=== PATIENT | male | born 1985 | race Caucasian/White ===

== ENCOUNTER 2018-04-03 16:54 | Emergency (ER) | payer MEDICAID ==
--- NOTE | 2018-04-03 17:16 | Emergency Department Record ---
History of Present Illness - General Chief complaint: Lower Extremity Pain Stated complaint: LT HINTON INJURY Time Seen by Provider: 04/03/18 17:10 Source: Patient Mode of Arrival: Wheelchair - History of Present Illness Initial comments: Patient states he ran into a trailer hitch 3-4 days ago while jogging. He has been on the leg since then and now it is painful. swollen, and bruised over the hinton. He denies his tory of PE, DVT, chestp pain shortness of breath, or clotting abnormalities. MD Complaint: Extremity pain, Extremity swelling Onset/Timin -: Days(s) Location: Right, Lower Leg Severity scale (1-10): 9 Quality: Aching, Sharp, Other Improves with: Nothing Worsens with: Nothing - Related Data Home Medications Medication Instructions Recorded Confirmed Last Taken No Home Med [NO HOME MEDS] 04/03/18 04/03/18 Unknown Allergies Allergy/AdvReac Type Severity Reaction Status Date / Time Penicillins Allergy DIFFICULTY Verified 04/03/18 17:07 BREATHING Travel Screening - Travel/Exposure Within Last 30 Days Have you traveled within the last 30 days?: No - Travel/Exposure Within Last Year Have you traveled outside the [place] in the last year?: No - Additonal Travel Details Have you been exposed to anyone with a communicable illness?: No - Travel Symptoms Symptom Screening: None Review of Systems Reviewed: No additional complaints except as noted below Constitutional: Reports: As per HPI. Denies: Chills, Fever, Malaise, Night sweats, Weakness, Weight change Eyes: Reports: As per HPI. Denies: Eye discharge, Eye pain, Photophobia, Vision change ENT: Reports: As per HPI. Denies: Congestion, Dental pain, Ear pain, Epistaxis , Hearing loss, Throat pain Respiratory: Reports: As per HPI. Denies: Cough, Dyspnea, Hemoptysis, Stridor, Wheezes Cardiovascular: Reports: As per HPI. Denies: Arrhythmia, Chest pain, Dyspnea on exertion, Edema, Murmurs, Orthopnea, Palpitations, Paroxysmal nocturnal dyspnea, Rheumatic Fever, Syncope Endocrine: Reports: As per HPI. Denies: Fatigue, Heat or cold intolerance, Polydipsia, Polyuria Gastrointestinal: Reports: As per HPI. Denies: Abdominal pain, Constipation, Diarrhea, Hematemesis, Hematochezia, Melena, Nausea, Vomiting Genitourinary: Reports: As per HPI. Denies: Dysuria, Frequency, Hematuria, Incontinence, Retention, Testicular pain, Testicular mass, Urgency Musculoskeletal: Reports: As per HPI. Denies: Arthralgia, Back pain, Gout, Joint swelling, Myalgia, Neck pain Skin: Reports: As per HPI. Denies: Bruising, Change in color, Change in hair/ nails, Lesions, Pruritus, Rash Neurological: Reports: As per HPI. Denies: Abnormal gait, Confusion, Headache, Numbness, Paresthesias, Seizure, Tingling, Tremors, Vertigo, Weakness Psychiatric: Reports: As per HPI. Denies: Anxiety, Auditory hallucinations, Depression, Homicidal thoughts, Suicidal thoughts, Visual hallucinations Hematological/Lymphatic: Reports: As per HPI. Denies: Anemia, Blood Clots, Easy bleeding, Easy bruising, Swollen glands Past Medical History - SOCIAL HISTORY Smoking Status: Heavy tobacco smoker (>10/day) Alcohol Use: None Drug Use: None - RESPIRATORY Hx Respiratory Disorders: Yes Hx Asthma: Yes - CARDIOVASCULAR Hx Cardio Disorders: No - NEURO Hx Neuro Disorders: No - GI Hx GI Disorders: No - Hx Genitourinary Disorders: No - ENDOCRINE Hx Endocrine Disorders: No - MUSCULOSKELETAL Hx Musculoskeletal Disorders: No - PSYCH Hx Psych Problems: No - HEMATOLOGY/ONCOLOGY Hx Hematology/Oncology Disorders: No Family Medical History Any Significant Family History?: No Physical Exam - General General Appearance: Alert, Oriented x3, Cooperative, Mild distress - Head Head exam: Normal inspection - Eye Eye exam: Normal appearance, PERRL Pupils: Normal accommodation - ENT ENT exam: Normal exam, Mucous membranes moist, Normal external ear exam, Normal orophraynx, TM's normal bilaterally Ear exam: Normal external inspection. negative: External canal tenderness Nasal Exam: Normal inspection. negative: Discharge, Sinus tenderness Mouth exam: Normal external inspection, Tongue normal Teeth exam: Normal inspection. negative: Dental caries Throat exam: Normal inspection. negative: Tonsillar erythema, Tonsillar exudate - Neck Neck exam: Normal inspection, Full ROM. negative: Tenderness - Respiratory Respiratory exam: Normal lung sounds bilaterally. negative: Respiratory distress - Cardiovascular Cardiovascular Exam: Regular rate, Normal rhythm, Normal heart sounds - GI/Abdominal GI/Abdominal exam: Soft, Normal bowel sounds. negative: Tenderness - Rectal Rectal exam: Deferred - exam: Deferred - Extremities Extremities exam: Normal inspection, Full ROM, Normal capillary refill, Tenderness (bruise over mid right hinton with swelling, ecchymosis, and tenderness. No erythema, or warmth. posterior calf nontender, but ankle/foot area is swollen mildly with dependent ecchymosis noted.. CMS intact distally.) - Back Back exam: Reports: Normal inspection, Full ROM. Denies: Muscle spasm, Rash noted, Tenderness - Neurological Neurological exam: Alert, Normal gait, Oriented X3, Reflexes normal - Psychiatric Psychiatric exam: Normal affect, Normal mood - Skin Skin exam: Dry, Intact, Normal color, Warm Course Vital Signs 04/03/18 16:59 Temperature 99.1 F Pulse Rate 84 Respiratory 18 Rate Blood Pressure 111/83 Pulse Ox 98 - Reevaluation(s) Reevaluation #1: Detailed teaching given on elevation of leg above heart. Patient understands and agrees. He is to be off work 3 days. 04/03/18 18:46 Medical Decision Making - Management Options MDM Management: No Additional Work-up Planned - Data Complexity MDM Data: X-Ray Ordered and/or Reviewed (Right lower leg Negative for fracture per radiologist.) Disposition Disposition: Discharge Clinical Impression: Contusion of lower leg, right Qualifiers: Encounter type: initial encounter Qualified Code(s): S80.11XA - Contusion of right lower leg, initial encounter Hematoma of leg Qualifiers: Encounter type: initial encounter Laterality: right Qualified Code(s): S80.11XA - Contusion of right lower leg, initial encounter Disposition: Home, Self-Care Return To Work/School Note Provided: Yes Condition: (1) Good Instructions: RICE Therapy (ED) Additional Instructions: Elevate leg above heart continuously. Ice as needed. tylenol as directed for pain. Benadryl 25 mg to 50 mg for sleep. Push fluids. Off work three days (Work note given). If you become tender over your posterior calf, return for an ultrasound. Quality - Quality Measures Quality Measures: N/A - Blood Pressure Screening Does Patient Have Any of the Following: No Blood Pressure Classification: Pre-Hypertensive BP Reading Systolic Measurement: 111 Diastolic Measurement: 83 Screening for High Blood Pressure: < Normal BP, F/U Not Required > [G8783]
[2018-04-03] MEDS ORDERED: ACETAMINOPHEN 500 MG TABLET PO ONE (17:31)
[2018-04-03] MEDS ORDERED: Diph,Pert(Acell),Tet Vac 0.5 ML SYR IM ONE (17:31)
--- NOTE | 2018-04-04 10:06 | RADIOLOGY REPORT ---
DATE: 04/03/2018 at 17:51 p.m. EXAM: RIGHT LOWER LEG. HISTORY: Jj injury four days ago. TECHNIQUE: AP and lateral views of the right lower leg. COMPARISON: None. ENCOUNTER: Initial. FINDINGS: Right lower leg appears intact with no definite fracture identified. There may be some mild soft tissue swelling anteriorly. IMPRESSION: NO FRACTURE OF THE RIGHT LOWER LEG IDENTIFIED. JOB NUMBER: [id number] MTDD
== END 2018-04-03 19:02 | disposition home or self-care (01) ==
LOC: ER 16:54
DX: S80.11XA Contusion of right lower leg, initial encounter (principal); F17.210 Nicotine dependence, cigarettes, uncomplicated; Y93.02 Activity, running
CPT/HCPCS: 90715; 96372; 99283

== ENCOUNTER 2019-01-23 15:31 | Inpatient (IN) | payer MEDICAID ==
[2019-01-23] MEDS ORDERED: 0.9 % SODIUM CHLORIDE 1000ML 1,000 ML IV ONE (16:26)
[2019-01-23] MEDS ORDERED: HYDROMORPHONE HCL 2 MG/ML VIAL IVP ONE (16:26)
--- NOTE | 2019-01-23 16:27 | Emergency Department Record ---
History of Present Illness - General Chief Complaint: Abdominal Pain Stated Complaint: HERNIA Time Seen by Provider: 01/23/19 16:22 Source: Patient Mode of Arrival: Wheelchair Limitations: No limitations - History of Present Illness Initial Comments: 34 yo female presents pain over the right femoral hernia. 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 He noticed some swelling over the right femoral area last night with pain. The pain has steadily increased since then. He had a left inguinal hernia repair as a child. No fever or vomiting. MD Complaint: Abdominal pain Onset/Timin -: Hour(s) Location: RLQ Radiation: None Migration to: RLQ Severity: Severe Severity scale (1-10): 10 Quality: Fullness, Sharp Consistency: Constant Improves With: Rest Worsens With: Movement Context: Other Associated Symptoms: Denies other symptoms - Related Data Allergies Allergy/AdvReac Type Severity Reaction Status Date / Time Penicillins Allergy DIFFICULTY Verified 01/23/19 15:43 BREATHING Travel Screening - Travel/Exposure Within Last 30 Days Have you traveled within the last 30 days?: No - Travel/Exposure Within Last Year Have you traveled outside the [place] in the last year?: No - Additonal Travel Details Have you been exposed to anyone with a communicable illness?: No Review of Systems Constitutional: Denies: Chills, Fever, Malaise, Weakness Eyes: Denies: Eye discharge ENT: Denies: Congestion, Throat pain Respiratory: Denies: Cough Cardiovascular: Denies: Chest pain, Syncope Endocrine: Denies: Fatigue Gastrointestinal: Denies: Abdominal pain, Diarrhea, Nausea, Vomiting Genitourinary: Denies: Dysuria, Frequency, Hematuria Musculoskeletal: Denies: Arthralgia, Back pain, Myalgia Skin: Denies: Bruising, Change in color, Rash Neurological: Denies: Headache Psychiatric: Denies: Anxiety Hematological/Lymphatic: Denies: Easy bleeding, Easy bruising Past Medical History - SOCIAL HISTORY Smoking Status: Heavy tobacco smoker (>10/day) Alcohol Use: None Drug Use: Occasional Drug Use Detail:: Marijuana - RESPIRATORY Hx Respiratory Disorders: Yes Hx Asthma: Yes - CARDIOVASCULAR Hx Cardio Disorders: No - NEURO Hx Neuro Disorders: No - GI Hx GI Disorders: No - Hx Genitourinary Disorders: No - ENDOCRINE Hx Endocrine Disorders: No - MUSCULOSKELETAL Hx Musculoskeletal Disorders: No - PSYCH Hx Psych Problems: No - HEMATOLOGY/ONCOLOGY Hx Hematology/Oncology Disorders: No Family Medical History Any Significant Family History?: No Physical Exam - General General Appearance: Alert, Oriented x3, Cooperative, No acute distress Limitations: No limitations - Head Head exam: Atraumatic - Eye Eye exam: Normal appearance, PERRL. negative: Conjunctival injection, Scleral icterus - ENT ENT exam: Normal exam Ear exam: Normal external inspection Nasal Exam: Normal inspection Mouth exam: Normal external inspection - Neck Neck exam: Normal inspection - Respiratory Respiratory exam: Normal lung sounds bilaterally. negative: Respiratory distress - Cardiovascular Cardiovascular Exam: Regular rate, Normal rhythm, Normal heart sounds - GI/Abdominal GI/Abdominal exam: Soft, Other (ABdomen is very soft and non tender. The inguinal area is minimally tender, he has a soft bulge lateral over the femoral area that is very tender). negative: Distended, Guarding, Rebound, Rigid, Tenderness - Rectal Rectal exam: Deferred - exam: Circumcision, Normal inspection. negative: Scrotal swelling, Testicular tenderness - Extremities Extremities exam: Tenderness (see above abdominal examination). negative: Normal inspection - Back Back exam: Denies: CVA tenderness (R), CVA tenderness (L) - Neurological Neurological exam: Alert, Oriented X3 - Psychiatric Psychiatric exam: Normal affect, Normal mood - Skin Skin exam: Dry, Intact, Normal color, Warm Course Vital Signs 01/23/19 15:39 Temperature 99.1 F Pulse Rate 101 H Respiratory 20 Rate Blood Pressure 119/76 Pulse Ox 97 - Reevaluation(s) Reevaluation #1: 01/23/19 17:45 The labs were reviewed The WBC count is 16 The CMP is normal The CT scan was read as right inguinal lymph node swelling The patient had not noticed his right lower leg was warm and red He has a sizable cellulitis on the right anterior leg. Given the pain of the LN, the cellulitis, I recommend admission for IV antibiotics. 01/23/19 17:54 I recommend admission for IV antibiotics I CARMEN Mccray [employer] for admission. Medical Decision Making - Lab Data Result diagrams: 01/23/19 16:33 01/23/19 16:33 Disposition Disposition: Admit Clinical Impression: Cellulitis, Lymphadenitis Disposition: Still a Patient at [facility] Decision to Admit: Admit from ER Decision to Admit Date: 05/18/19 Decision to Admit Time: 17:47 Condition: (2) Stable Forms: Patient Portal Access Time of Disposition: 17:47 Quality - Quality Measures Quality Measures: N/A - Blood Pressure Screening Does Patient Have Any of the Following: No Blood Pressure Classification: Normal BP Reading Systolic Measurement: 119 Diastolic Measurement: 76 Screening for High Blood Pressure: < Normal BP, F/U Not Required > [G8783]
[2019-01-23 16:59] LABS: BASO % 0.4 % (0-6); HEMATOCRIT 39.8 % (42.0-52.0); HEMOGLOBIN 13.2 gm/dl (14.0-18.0); LYMPH % 7.1 % (16-45); MEAN CORPUSCULAR HEMOGLOBIN 29.5 pg (27-33); MEAN CORPUSCULAR HGB CONC 33.2 g/dl (32-36); MONO % 3.1 % (0-9); PLATELET COUNT 223 K/uL (130-400); RED BLOOD COUNT 4.47 M/uL (4.40-5.70); RED CELL DISTRIBUTION WIDTH 13.1 % (11.5-14.5); WHITE BLOOD COUNT W/O DIFF 16.1 K/uL (4.2-12.2)
[2019-01-23 17:11] LABS: BLOOD UREA NITROGEN 10 mg/dL (6-20); CREATININE 0.8 mg/dL (0.7-1.2); EST GLOMERULAR FILTRATION RATE > 60 mL/min
[2019-01-23 17:12] LABS: INR 1.2; PARTIAL THROMBOPLASTIN TIME 34.6 SECONDS (24.5-39.1); PROTHROMBIN TIME (PATIENT) 11.6 SECONDS (9.5-12.1)
[2019-01-23 17:14] LABS: GLUCOSE,RANDOM 102 mg/dL (74-109)
[2019-01-23 17:27] LABS: ABSOLUTE NEUTROPHIL COUNT 14.04; PLATELET ESTIMATE NORMAL (NORMAL); TOXIC GRANULATION 1+
[2019-01-23] MEDS ORDERED: CLINDAMYCIN 600MG/50ML PREMIX 600 MG/50 ML BAG IVPB ONE (17:45)
[2019-01-23] MEDS ORDERED: KETOROLAC 30 MG/ML VIAL IVP ONE (17:56)
[2019-01-23] MEDS: CLINDAMYCIN 600MG/50ML PREMIX 600 MG/50 ML BAG IVPB SCH (19:28)
[2019-01-23] MEDS: 0.9 % SODIUM CHLORIDE 1000ML 1,000 ML IV PRN (20:00)
[2019-01-23] MEDS: ACETAMINOPHEN 500 MG TABLET PO PRN (20:18)
[2019-01-23] MEDS: MORPHINE SULFATE 10 MG/ML VIAL IVP SCH ×2 (20:52→23:05)
[2019-01-23] MEDS: NICOTINE 21 MG/24 HOUR PATCH TD SCH (21:01)
[2019-01-24] MEDS: ACETAMINOPHEN 500 MG TABLET PO PRN (02:24)
[2019-01-24] MEDS: CLINDAMYCIN 600MG/50ML PREMIX 600 MG/50 ML BAG IVPB SCH ×3 (02:24→18:29)
[2019-01-24] MEDS: MORPHINE SULFATE 10 MG/ML VIAL IVP SCH ×4 (02:39→15:24)
[2019-01-24 05:52] LABS: BASO % 0.4 % (0-6); GRAN % 79.2 % (47-80); HEMATOCRIT 39.6 % (42.0-52.0); HEMOGLOBIN 12.8 gm/dl (14.0-18.0); LYMPH % 11.4 % (16-45); MEAN CORPUSCULAR HGB CONC 32.3 g/dl (32-36); MEAN PLATELET VOLUME 9.7 fl (7.4-10.4); PLATELET COUNT 191 K/uL (130-400); RED CELL DISTRIBUTION WIDTH 13.3 % (11.5-14.5); WHITE BLOOD COUNT W/O DIFF 9.9 K/uL (4.2-12.2)
[2019-01-24 06:03] LABS: BLOOD UREA NITROGEN 12 mg/dL (6-20); CREATININE 0.8 mg/dL (0.7-1.2); EST GLOMERULAR FILTRATION RATE > 60 mL/min; GLUCOSE,RANDOM 94 mg/dL (74-109)
[2019-01-24] MEDS: KETOROLAC 30 MG/ML VIAL IVP PRN ×3 (06:16→23:10)
[2019-01-24] MEDS: 0.9 % SODIUM CHLORIDE 1000ML 1,000 ML IV PRN (07:16)
[2019-01-24] MEDS: NICOTINE 21 MG/24 HOUR PATCH TD SCH (10:15)
--- NOTE | 2019-01-24 15:18 | History & Physical ---
History of Present Illness - Date of Service Date of Service for History & Physical: 01/24/19 - History of Present Illness Admitting Diagnosis: cellulitis with lymphadenopathy History of Present Illness: Rodriguez Dodge is a 34 y.o. M who presented to the [facility] ED on 01/23/19 with c/o pain in the R femoral area. 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 Pain had worsened steadily, which jonathan him to the ED. Was found in the ED to have cellulitis to the RLE, for which he hadn't noticed previously. Denied fever or chills. PMHx includes: Asthma (only has rescue inhaler), tobacco use and occasional marijuana use, hx of alcohol abuse ED Course Vitals: T 99.1, HR 101, BP 119/76, RR 20, SpO2 97% on RA Labs: WBC 16.1, Neutrophils 87%, BUN 10, Creatinine 0.8 CT Abd/Pelvis: right inguinal lymph node swelling 01/24/19 1530 Vitals: T 98.8, HR 68, BP 124/68, RR 16, SpO2 96% on RA A&Ox3, laying in bed. States that pain has increased and is worse. Morphine q. 4 hours doesn't "seem to be lasting". Pain /. Has had [employer] in the past d/t a knee surgery and reports that he tolerated it well. Denies fever or chills. Reports that he does not have a PCP and is in need of one. Dr. Jensen, ED Physician, checked on pt this afternoon and reported that cellulitis in RLE was reduced but that right inguinal swelling and redness was worsening. Travel Screening - Travel/Exposure Within Last 30 Days Have you traveled within the last 30 days?: No - Travel/Exposure Within Last Year Have you traveled outside the [place] in the last year?: No - Additonal Travel Details Have you been exposed to anyone with a communicable illness?: No - Travel Symptoms Symptom Screening: None Review of Systems Reviewed: No additional complaints except as noted below Constitutional: Denies: Chills, Fever, Malaise, Weakness Eyes: Denies: Eye discharge ENT: Denies: Congestion, Throat pain Respiratory: Denies: Cough Cardiovascular: Denies: Chest pain, Syncope Endocrine: Denies: Fatigue Gastrointestinal: Denies: Abdominal pain, Diarrhea, Nausea, Vomiting Genitourinary: Denies: Dysuria, Frequency, Hematuria Musculoskeletal: Denies: Arthralgia, Back pain, Myalgia Skin: Denies: Bruising, Change in color, Rash Neurological: Denies: Headache Psychiatric: Denies: Anxiety Hematological/Lymphatic: Denies: Easy bleeding, Easy bruising Past Medical History - SOCIAL HISTORY Smoking Status: Heavy tobacco smoker (>10/day) Alcohol Use: None Drug Use: Rare Drug Use Detail:: Marijuana - RESPIRATORY Hx Respiratory Disorders: Yes Hx Asthma: Yes - CARDIOVASCULAR Hx Cardio Disorders: No - NEURO Hx Neuro Disorders: No - GI Hx GI Disorders: No - Hx Genitourinary Disorders: No - ENDOCRINE Hx Endocrine Disorders: No - MUSCULOSKELETAL Hx Musculoskeletal Disorders: No - PSYCH Hx Psych Problems: No - HEMATOLOGY/ONCOLOGY Hx Hematology/Oncology Disorders: No Family Medical History Any Significant Family History?: Yes Family Hx Comment (NOT TO BE USED IN PLACE OF ITEMS BELOW): dad has had skin infections in the past Hx Diabetes: Mother, Grandparents H&P Meds/Allergies - Allergies Allergies: Allergies Allergy/AdvReac Type Severity Reaction Status Date / Time Penicillins Allergy DIFFICULTY Verified 01/23/19 15:43 BREATHING - Active Medications Active Medications: Current Medications Acetaminophen (Tylenol 500mg Tab) 1,000 mg PO Q6H PRN PRN Reason: PAIN - MILD(1-4)/FEVER Last Admin: 01/24/19 02:24 Dose: 1,000 mg Documented by: Sodium Chloride () 1,000 mls @ 100 mls/hr IV .Q10H PRN PRN Reason: LARGE VOLUME IV Last Admin: 01/24/19 07:16 Dose: 100 mls/hr Documented by: Clindamycin Phosphate (Cleocin 600 [id number]) 600 mg in 50 mls @ 100 mls/hr IVPB Q8H SHAILA Last Infusion: 01/24/19 10:45 Dose: Infused Documented by: Ketorolac Tromethamine (Toradol) 15 mg IVP Q8H PRN PRN Reason: PAIN - MILD (1-4) Last Admin: 01/24/19 14:26 Dose: 15 mg Documented by: Morphine Sulfate (Morphine Sulfate) 4 mg IVP Q4H SHAILA Last Admin: 01/24/19 11:48 Dose: 4 mg Documented by: Nicotine (Nicotine 21mg) 1 patch TD DAILY SHAILA Last Admin: 01/24/19 10:15 Dose: 1 patch Documented by: Physical Exam - Vital Signs Vital Signs: Vital Signs - Last 24 Hrs Temp Pulse Pulse Resp BP BP Pulse Ox 01/24/19 13:00 98.8 F 68 16 124/68 96 01/24/19 07:41 16 01/24/19 05:00 98.3 F 82 20 111/69 98 01/23/19 19:06 98.7 F 94 H 16 109/76 96 01/23/19 18:38 99.1 F 87 18 104/66 100 01/23/19 15:39 99.1 F 101 H 20 119/76 97 - General General Appearance: Alert, Oriented x3, Cooperative, Mild distress (facial grimacing with slight tremors) Limitations: No limitations - Head Head exam: Atraumatic - Eye Eye exam: Normal appearance, PERRL. negative: Conjunctival injection, Scleral icterus - ENT ENT exam: Normal exam Ear exam: Normal external inspection Nasal Exam: Normal inspection Mouth exam: Normal external inspection - Neck Neck exam: Normal inspection - Respiratory Respiratory exam: Normal lung sounds bilaterally. negative: Respiratory dis tress - Cardiovascular Cardiovascular Exam: Regular rate, Normal rhythm, Normal heart sounds - GI/Abdominal GI/Abdominal exam: Soft, Other (ABdomen is very soft and non tender. The inguinal area is extremelty tender, he has a soft bulge lateral over the femoral area that is very tender and erythematous). negative: Distended, Guarding, Rebound, Rigid, Tenderness - Rectal Rectal exam: Deferred - exam: Circumcision, Normal inspection. negative: Scrotal swelling, Testicular tenderness - Extremities Extremities exam: Normal capillary refill (pulses palpable), Tenderness (RLE ), Other (Erythema and swelling well receded from drawn margins). negative: Normal inspection - Back Back exam: Denies: CVA tenderness (R), CVA tenderness (L) - Neurological Neurological exam: Alert, Oriented X3 - Psychiatric Psychiatric exam: Normal affect, Normal mood - Skin Skin exam: Dry, Erythema (RLE and right groin), Intact, Normal color, Warm Results - Labs Result Diagrams: 01/24/19 05:40 01/24/19 05:40 Labs Last 24 Hours: Laboratory Results - last 24 hr 01/23/19 01/23/19 01/23/19 16:33 16:33 16:33 WBC 16.1 H RBC 4.47 Hgb 13.2 L Hct 39.8 L MCV 89.0 MCH 29.5 MCHC 33.2 RDW 13.1 Plt Count 223 MPV 10.0 Gran % Neutrophils % 87.0 H Band Neutrophils % 5.0 Lymphocytes % 7.1 L Monocytes % 3.1 Eosinophils % 0.0 Basophils % 0.4 Absolute Neutrophils 14.04 Lymphocytes 5.0 L Monocytes 3.0 Toxic Granulation 1+ Platelet Estimate Normal RBC Morphology Normal PT 11.6 INR 1.2 APTT 34.6 Sodium 135 L Potassium 3.9 Chloride 101 Carbon Dioxide 25.0 Anion Gap 9.0 BUN 10 Creatinine 0.8 Estimated GFR > 60 Random Glucose 102 Calcium 8.9 01/24/19 01/24/19 05:40 05:40 WBC 9.9 RBC 4.40 Hgb 12.8 L Hct 39.6 L MCV 90.0 MCH 29.0 MCHC 32.3 RDW 13.3 Plt Count 191 MPV 9.7 Gran % 79.2 Neutrophils % Band Neutrophils % Lymphocytes % 11.4 L Monocytes % 7.0 Eosinophils % 2.0 Basophils % 0.4 Absolute Neutrophils 7.80 Lymphocytes Monocytes Toxic Granulation Platelet Estimate RBC Morphology PT INR APTT Sodium 138 Potassium 4.1 Chloride 102 Carbon Dioxide 27.0 Anion Gap 9.0 BUN 12 Creatinine 0.8 Estimated GFR > 60 Random Glucose 94 Calcium 8.4 L VTE H&P Assessment - Risk for VTE Risk for VTE: Yes Risk Level: Low Risk Assessment Date: 01/24/19 Risk Assessment Time: 15:30 VTE Orders Placed or Will Be Placed: Yes Plan - Inpatient Certification Inpatient Certification: Admit to inpatient care: Based on my medical assessment, after consideration of patient's risk factors (age, co-morbidities and patient presenting symptoms and acuity), I expect that this patient will remain in the hospital greater than or equal to two midnights and that the services needed warrant inpatient care because: Patient Risk Factors: [] Estimated length of stay: [] The patient may reasonably be expected to be disc harged or transferred to a hospital within 96 hours after [facility] to [facility]. Services needed: [] Post hospital care (if known): [] I certify that my determination is in accordance with my understanding of Medicare requirements for reasonable and necessary inpatient services. - Detailed Diagnosis and Plan (1) Cellulitis Current Visit: Yes Status: Acute Base Code: L03.90 - CELLULITIS, UNSPECIFIED Comment: 01/24/19 -Erythema to RLE, receded from drawn margin -Continue Clindamycin 600mg IV q. 8 hours (2) Lymphadenitis Current Visit: Yes Status: Acute Base Code: I88.9 - NONSPECIFIC LYMPHADENITIS, UNSPECIFIED Comment: 01/24/19 -Abd/Pelvis CT: Right inquinal lymph node swelling -Likely d/t RLE cellulitis -Continue Clindamycin 600mg IV q. 8 hours -Pain Management with alternating Toradol and [employer] with Morphine for breakthrough pain (3) Acute pain Current Visit: Yes Status: Acute Base Code: R52 - PAIN, UNSPECIFIED Comment: 01/24/19 -Pain poorly controlled with Morphine q. 4 hours and Toradol q. 8 hours PRN -[employer] 7.5/325mg PO q. 4 hours -Change Morphine to 1mg q. 2 hours PRN for breakthrough pain -Continue Toradol 15mg IV. q 8 hours (4) Full code status Current Visit: Yes Status: Acute Base Code: Z78.9 - OTHER SPECIFIED HEALTH STATUS Comment: 01/24/19 -Full code this admission (5) DVT prophylaxis Current Visit: Yes Status: Acute Base Code: Z29.9 - ENCOUNTER FOR [place] OPHYLACTIC MEASURES, UNSPECIFIED Comment: 01/24/19 -Low risk d/t age however has been laying in bed d/t pain -Lovenox 40mg subq q.day -Nursing to encourage ambulation
[2019-01-24] MEDS ORDERED: MORPHINE SULFATE 10 MG/ML VIAL IVP PRN (16:30)
[2019-01-24] MEDS: HYDROCODONE/APAP 7.5/325MG TABLET PO PRN (20:16)
[2019-01-24] MEDS: ENOXAPARIN 40 MG/0.4 ML SYR SQ SCH (20:56)
[2019-01-25] MEDS: HYDROCODONE/APAP 7.5/325MG TABLET PO PRN ×2 (00:28→08:27)
[2019-01-25] MEDS: CLINDAMYCIN 600MG/50ML PREMIX 600 MG/50 ML BAG IVPB SCH ×2 (02:47→11:09)
--- NOTE | 2019-01-25 07:20 | CT SCAN REPORT ---
EXAM: CT OF THE ABDOMEN AND PELVIS WITH CONTRAST HISTORY: ABDOMINAL PAIN FOR ONE DAY. TECHNIQUE: CT imaging of the abdomen and pelvis was performed following intravenous administration of contrast, amount and type of contrast is noted in the medical record. FINDINGS: The visualized lung bases are unremarkable. The liver, gallbladder, pancreas, spleen, adrenals and kidneys are unremarkable. There is a moderate volume of stool within the colon. The bowel is normal in caliber. The appendix has a normal CT appearance. The bladder is unremarkable. The aorta enhances normally with contrast. There are a few mildly prominent right inguinal lymph nodes measuring up to 14 mm in short axis. There is mild adjacent fat stranding. No free air or free fluid is seen. No acute osseous abnormality. Moderate L5-S1 degenerative disk disease. IMPRESSION: 1. NO ACUTE INTRAABDOMINAL OR PELVIC ABNORMALITY. 2. RIGHT INGUINAL LYMPH NODE ENLARGEMENT MEASURING UP TO 14 MM IN SHORT AXIS. THERE IS ADJACENT FAT STRANDING. FINDINGS MAY BE INFLAMMATORY/REACTIVE IN NATURE. CORRELATE CLINICALLY. FOLLOW-UP IMAGING WITH TARGETED ULTRASOUND COULD BE PERFORMED TO DOCUMENT RESOLUTION. JOB NUMBER: [id number] [facility]
[2019-01-25] MEDS: NICOTINE 21 MG/24 HOUR PATCH TD SCH (09:44)
[2019-01-25] MEDS: ENOXAPARIN 40 MG/0.4 ML SYR SQ SCH (10:04)
--- NOTE | 2019-01-25 13:26 | Discharge Summary ---
Providers Discharge Summary Date: 01/25/19 Date of admission: 01/23/19 19:02 Attending physician: BERNA FOX Physical Exam - Vital Signs Vital Signs: Vital Signs - Last 24 Hrs Temp Pulse Pulse Resp BP Pulse Ox 01/25/19 08:45 68 16 01/25/19 07:52 97.5 F L 83 15 120/69 97 01/25/19 05:00 98.2 F 71 20 104/64 94 L 01/24/19 21:00 98.3 F 79 18 107/70 96 - General General Appearance: Alert, Oriented x3, Cooperative, No acute distress Limitations: No limitations - Head Head exam: Atraumatic - Eye Eye exam: Normal appearance, PERRL. negative: Conjunctival injection, Scleral icterus - ENT ENT exam: Normal exam Ear exam: Normal external inspection Nasal Exam: Normal inspection Mouth exam: Normal external inspection - Neck Neck exam: Normal inspection - Respiratory Respiratory exam: Normal lung sounds bilaterally. negative: Respiratory di stress - Cardiovascular Cardiovascular Exam: Regular rate, Normal rhythm, Normal heart sounds - GI/Abdominal GI/Abdominal exam: Soft, Other (decreased erythema and bulging area to right groin/thigh. tender to touch). negative: Distended, Guarding, Rebound, Rigid, Tenderness - Rectal Rectal exam: Deferred - exam: Circumcision, Normal inspection. negative: Scrotal swelling, Testicular tenderness - Extremities Extremities exam: Normal capillary refill (pulses palpable), Tenderness, Other (Erythema and swelling well receded from drawn margins). negative: Normal inspection - Back Back exam: Denies: CVA tenderness (R), CVA tenderness (L) - Neurological Neurological exam: Alert, Oriented X3 - Psychiatric Psychiatric exam: Normal affect, Normal mood - Skin Skin exam: Dry, Erythema (well receded from previous drawn line), Intact, Normal color, Warm Hospitalization - Hospitalization Admission Diagnosis: cellulitis with lymphadenopathy - Problem List/Discharge Diagnosis (1) Cellulitis Status: Acute Base Code: L03.90 - CELLULITIS, UNSPECIFIED Comment: 01/25/19 -Erythema to RLE, receded from drawn margin, improvement from yesterday -Clindamycin 300mg PO BID x 8 days -Align 4mg po daily to prevent c.diff infection -F/u with PCP in 1 week (2) Lymphadenitis Status: Acute Base Code: I88.9 - NONSPECIFIC LYMPHADENITIS, UNSPECIFIED Comment: 01/25/19 -Abd/Pelvis CT: Right inquinal lymph node swelling -Likely d/t RLE cellulitis -Discharged with #12 Ridgely for pain control (3) Acute pain Status: Acute Base Code: R52 - PAIN, UNSPECIFIED Comment: 01/25/19 -#12 Ridgely prescribed for pain control at home (4) Full code status Status: Acute Base Code: Z78.9 - OTHER SPECIFIED HEALTH STATUS Comment: 01/25/19 -Full code this admission (5) DVT prophylaxis Status: Acute Base Code: Z29.9 - ENCOUNTER FOR PROPHYLACTIC MEASURES, UNSPECIFIED Comment: 01/25/19 -Low risk d/t age however has been laying in bed d/t pain -Nursing to encourage ambulation - Hospitalization Course Disposition: Home, Self-Care Hospital Course: Rodriguez Dodge is a 34 y.o. M who presented to the [facility] ED on 01/23/19 with c/o pain in the R femoral area. 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 Pain had worsened steadily, which jonathan him to the ED. Was found in the ED to have cellulitis to the RLE, for which he hadn't noticed previously. Denied fever or chills. PMHx includes: Asthma (only has rescue inhaler), tobacco use and occasional marijuana use, hx of alcohol abuse ED Course Vitals: T 99.1, HR 101, BP 119/76, RR 20, SpO2 97% on RA Labs: WBC 16.1, Neutrophils 87%, BUN 10, Creatinine 0.8 CT Abd/Pelvis: right inguinal lymph node swelling 01/24/19 1530 Vitals: T 98.8, HR 68, BP 124/68, RR 16, SpO2 96% on RA A&Ox3, laying in bed. States that pain has increased and is worse. Morphine q. 4 hours doesn't "seem to be lasting". Pain 06/17. Has had Ridgely in the past d/t a knee surgery and reports that he tolerated it well. Denies fever or chills. Reports that he does not have a PCP and is in need of one. Dr. Jensen, ED Physician, checked on pt this afternoon and reported that cellulitis in RLE was reduced but that right inguinal swelling and redness was worsening. 01/25/19 1300 Reports improvement in pain and swelling in groin area. Ridgely helped with pain control. Denies having any fever or chills. Has new patient appointment set up with [facility] family practice for f/u. Procedures: Imaging and X-Rays 01/23/19 16:26 ABDOMEN/PELVIS W CONTRAST [CT] Stat Abnormal Labs: Abnormal Lab Results 01/23/19 01/23/19 01/24/19 Range/Units 16:33 16:33 05:40 WBC 16.1 H (4.2-12.2) K/uL Hgb 13.2 L 12.8 L (14.0-18.0) gm/dl Hct 39.8 L 39.6 L (42.0-52.0) % Neutrophils % 87.0 H (47-80) % Lymphocytes % 7.1 L 11.4 L (16-45) % Lymphocytes 5.0 L (16-45) % Sodium 135 L (136-145) mmol/L Calcium (8.6-10.0) mg/dL 01/24/19 Range/Units 05:40 WBC (4.2-12.2) K/uL Hgb (14.0-18.0) gm/dl Hct (42.0-52.0) % Neutrophils % (47-80) % Lymphocytes % (16-45) % Lymphocytes (16-45) % Sodium (136-145) mmol/L Calcium 8.4 L (8.6-10.0) mg/dL Condition at Discharge: (2) Stable Discharge Medications - Discharge Medications Prescriptions: Bifidobacterium Infantis [Align] 4 mg PO DAILY #14 capsule Clindamycin HCl 300 mg PO BID 8 Days #16 capsule Hydrocodone/APAP 7.5/325Mg [Ridgely 7.5MG/325Mg] 1 each PO Q4H PRN #12 tab PRN Reason: Pain - Severe (8-10) Home Medications: Ambulatory Orders Bifidobacterium Infantis [Align] 4 mg PO DAILY #14 capsule 01/25/19 [Last Taken Unknown] Clindamycin HCl 300 mg PO BID 8 Days #16 capsule 01/25/19 [Last Taken Unknown] Hydrocodone/APAP 7.5/325Mg [Ridgely 7.5MG/325Mg] 1 each PO Q4H PRN #12 tab 05/20/19 [Last Taken Unknown] Discharge Plan - Discharge Instructions Activity at Discharge: Increase Activity as Tolerated Diet at Discharge: Regular Diet Instructions: Cellulitis (DC) Additional Instructions: Appointment for hospital follow up and to establish primary care with Rei Mccray at [facility] Family [facility] on 02/02 at 2:40. Please bring new patient paperwork to first appointment. Diet as tolerated. Keep leg elevated as much as possible. Take Clindamycin twice a day ( start tonight) until gone. Ridgely every 4 hours as needed for pain Align as directed. Return to the ED if getting worse. Quality Measures - Quality Measures Quality Measures: Documentation of Current Medications in Medical Record, Screening for High Blood Pressure and F/U Documented - Current Medications Quality Measure: Measure #130: Documentation of Current Medications Documentation of Current Medications: <Current Medications Documented/Reviewed> [G8427] - Blood Pressure Screening Quality Measure: Screening for High Blood Pressure and Follow-Up Documented Does Patient Have Any of the Following: No Blood Pressure Classification: Normal BP Reading Systolic Measurement: 119 Diastolic Measurement: 76 Screening for High Blood Pressure: < Normal BP, F/U Not Required > [G8783] - Elder Abuse Suspicion Index EASI Reference Information: Shadia PHILLIPS, Dm C, Navi D, Delicia M.Development and validation of a tool to assist physicians identification of elder abuse: The Elder Abuse Suspicion Index (EASI ). Journal of Elder Abuse and Neglect, 2008; 20 (3): 276-300.
== END 2019-01-25 13:46 | disposition home or self-care (01) | DRG 815 ==
LOC: ER 15:31 → MEDSURG 19:02
PROVIDERS: ADMIT Internal Medicine; ATTEND Internal Medicine
DX: I88.9 Nonspecific lymphadenitis, unspecified (principal); L03.90 Cellulitis, unspecified; R52 Pain, unspecified; J45.909 Unspecified asthma, uncomplicated; Z29.9 Encounter for prophylactic measures, unspecified
CPT/HCPCS: 74177; 80048; 85025; 85027; 85610; 85730; 96365; 96375; 99223; 99239; 99285; J1885; J2270; J7030

== ENCOUNTER 2019-04-15 10:40 | Emergency (ER) | payer MEDICAID ==
[2019-04-15] MEDS ORDERED: IBUPROFEN 600 MG TABLET PO ONE (10:46)
--- NOTE | 2019-04-15 10:52 | Emergency Department Record ---
History of Present Illness - General Chief Complaint: Ankle/Foot Injury Stated Complaint: FOOT INJURY Time Seen by Provider: 04/15/19 10:43 Source: Patient Mode of Arrival: Ambulatory Limitations: No limitations - History of Present Illness Initial Comments: The patient is here due to L foot pain. The patient states he has a hx of a L foot fracture 8 years ago and was walking at work and felt pain to the foot in the same area. He denies any injury, fall or trauma. Since the foot has been painful with walking. There is no ankle or knee pain. MD Complaint: Foot injury Onset/Timin -: Days(s) - Related Data Previous Rx's Medication Instructions Recorded Indomethacin [Indocin] 50 mg PO TID #21 cap 04/15/19 Prednisone [Prednisone 20Mg] 40 mg PO DAILY #10 tab 04/15/19 Allergies Allergy/AdvReac Type Severity Reaction Status Date / Time Penicillins Allergy DIFFICULTY Verified 04/15/19 10:52 BREATHING Review of Systems Constitutional: Denies: Chills, Fever Past Medical History - SOCIAL HISTORY Smoking Status: Heavy tobacco smoker (>10/day) Drug Use: Rare Drug Use Detail:: Marijuana - RESPIRATORY Hx Respiratory Disorders: Yes Hx Asthma: Yes - CARDIOVASCULAR Hx Cardio Disorders: No - NEURO Hx Neuro Disorders: No - GI Hx GI Disorders: No - Hx Genitourinary Disorders: No - ENDOCRINE Hx Endocrine Disorders: No - MUSCULOSKELETAL Hx Musculoskeletal Disorders: No - PSYCH Hx Psych Problems: No - HEMATOLOGY/ONCOLOGY Hx Hematology/Oncology Disorders: No Family Medical History Family Hx Comment (NOT TO BE USED IN PLACE OF ITEMS BELOW): dad has had skin infections in the past Hx Diabetes: Mother, Grandparents Physical Exam - General General Appearance: Alert, Oriented x3, Cooperative, No acute distress - Head Head exam: Atraumatic, Normocephalic - Extremities Extremities exam: Normal inspection (There is no L foot swelling, bruising, or erythema.), Normal capillary refill, Tenderness (There is tenderness to the L 1st MTP joint which does reproduce the patient's pain. There is no L ankle swelling or tenderness.), Other (The L foot is NVI.). negative: Full ROM Image of Feet: 1 - Area of pain and tenderness. Course - Reevaluation(s) Reevaluation #1: I did discuss the xray and lab work with the patient. I do believe he has gout in the L foot and he is to take the prescribed medicines as directed. The patient is to take 2 days off work and see his PCP next week for recheck. 04/15/19 12:07 Medical Decision Making - Data Complexity MDM Data: Labs Ordered and/or Reviewed, X-Ray Ordered and/or Reviewed - Lab Data Result diagrams: 04/15/19 11:26 04/15/19 11:26 - Radiology Data Radiology results: Report reviewed (L foot: Neg) Disposition Disposition: Discharge Clinical Impression: Gout attack Qualifiers: Gout site: unspecified site Gout etiology: unspecified cause Qualified Code(s): M10.9 - Gout, unspecified Disposition: Home, Self-Care Condition: (2) Stable Instructions: Gout (ED) Additional Instructions: Please take the Prednisone for 5 days along with Indocin for pain. Please follow the gout diet and see your family doctor next week for recheck. Return to the ER for any worsening issues. Prescriptions: Indomethacin [Indocin] 50 mg PO TID #21 cap Prednisone [Prednisone 20Mg] 40 mg PO DAILY #10 tab Forms: Patient Portal Access Time of Disposition: 12:06 Quality - Quality Measures Quality Measures: N/A - Blood Pressure Screening View Details: Yes Does Patient Have Any of the Following: No Blood Pressure Classification: Hypertensive Reading Systolic Measurement: 132 Diastolic Measurement: 96 Screening for High Blood Pressure: < First Hypertensive BP, F/U Documented > [G8950] First Hypertensive Follow-up Interventions: Referral to alternative/primary care provider.
[2019-04-15 11:40] LABS: ABSOLUTE NEUTROPHIL COUNT 4.67; BASO % 0.7 % (0-6); EOS % 9.8 % (0-6); GRAN % 51.8 % (47-80); HEMATOCRIT 43.5 % (42.0-52.0); HEMOGLOBIN 14.7 gm/dl (14.0-18.0); LYMPH % 31.6 % (16-45); MEAN CORPUSCULAR HEMOGLOBIN 29.4 pg (27-33); MEAN CORPUSCULAR HGB CONC 33.8 g/dl (32-36); MEAN PLATELET VOLUME 10.3 fl (7.4-10.4); MONO % 6.1 % (0-9); PLATELET COUNT 260 K/uL (130-400); RED CELL DISTRIBUTION WIDTH 13.6 % (11.5-14.5)
[2019-04-15 11:41] LABS: BLOOD UREA NITROGEN 9 mg/dL (6-20); CREATININE 0.8 mg/dL (0.7-1.2); EST GLOMERULAR FILTRATION RATE > 60 mL/min
[2019-04-15 11:44] LABS: GLUCOSE,RANDOM 75 mg/dL (74-109)
--- NOTE | 2019-04-16 06:32 | RADIOLOGY REPORT ---
EXAM: FOOT, LEFT 3 VIEWS HISTORY: INJURY. TECHNIQUE: Three views of the left foot. COMPARISON: None. FINDINGS: Phalanges and metatarsals appear normal. There is no sign of fracture, suspicious lytic lesion, or periosteal bone formation. The tarsal bones also appear unremarkable. Joint spacing is preserved. No narrowing, erosion, or subluxation. There is no radiopaque foreign body or soft tissue calcification. IMPRESSION: NO SPECIFIC BONE OR JOINT ABNORMALITY EVIDENT ON X-RAY. THIS DOES NOT RULE OUT SOFT TISSUE INFLAMMATION IN THE AREA OF CONCERN. JOB NUMBER: [id number] [facility]
== END 2019-04-15 12:19 | disposition home or self-care (01) ==
LOC: ER 10:40
DX: M10.072 Idiopathic gout, left ankle and foot (principal)
CPT/HCPCS: 80048; 84550; 85025; 99283